=== PATIENT | female | born 1995 | race Hispanic/Latino ===

== ENCOUNTER 2016-06-01 19:00 | Inpatient (IN) | payer OTHER ==
[~2016-06-01] VITALS: Ht 172.7 cm; Wt 92.1 kg
[~2016-06-01 19:00] MED LIST: no historical meds
[2016-06-01] MEDS ORDERED: Lactated Ringer's 1,000 ML IV ONE ×2 (21:15→22:55)
[2016-06-01] MEDS ORDERED: Lactated Ringer's 1,000 ML IV PRN (23:21)
[2016-06-01] MEDS ORDERED: Carboprost 250 mCg/mL Inj IM PRN (23:25)
[2016-06-01] MEDS ORDERED: Ondansetron 2 mg/mL 2 mL Inj IVPUSH PRN (23:25)
[2016-06-01] MEDS ORDERED: Hemorrhage Kit, Post Partum XX ONE (23:25)
[2016-06-01] MEDS ORDERED: Oxytocin 10 Unit/mL Inj IM PRN (23:25)
[2016-06-01] MEDS ORDERED: Oxytocin 30 Units/500 mL LR 30 UNITS in IV Premix 1 EACH IV PRN (23:25)
[2016-06-01] MEDS ORDERED: Sodium Chloride LOK Flush 10 mL Syringe IVFLUSH PRN (23:25)
[2016-06-01] MEDS ORDERED: Methylergonovine 0.2 mg/mL Inj IM PRN (23:25)
[2016-06-01] MEDS ORDERED: fentaNYL-PF 50 mCg/mL 2 mL Inj IVPUSH PRN (23:25)
[2016-06-01] MEDS ORDERED: Penicillin G K Inj 5,000,000 UNITS in Dextrose 5% Minibag Plus 100 ML IV ONE (23:25)
[2016-06-02 00:39] LABS: Mean Corpuscular Hemoglobin 28.3 pg (27.0-35.0); Mean Corpuscular Volume 84.2 fL (81-100)
[2016-06-02] MEDS ORDERED: Carboprost 250 mCg/mL Inj IM PRN (02:45)
[2016-06-02] MEDS ORDERED: oxyCODONE-Acetamin 5-325 mg Tablet PO PRN (02:45)
[2016-06-02] MEDS ORDERED: Oxytocin 10 Unit/mL Inj IM PRN (02:45)
[2016-06-02] MEDS ORDERED: LANOlin HPA 7 Gm Ointment TOPICAL PRN (02:45)
[2016-06-02] MEDS ORDERED: Hemorrhage Kit, Post Partum XX ONE (02:45)
[2016-06-02] MEDS ORDERED: Methylergonovine 0.2 mg/mL Inj IM PRN (02:45)
[2016-06-02] MEDS ORDERED: Benzocaine (Dermoplast) 20% 60 Gm Spray TOPICAL PRN (02:45)
[2016-06-02] MEDS: Witch Hazel-Glycerin Pads TOPICAL PRN ×2 (03:23→14:49)
[2016-06-02] MEDS ORDERED: Penicillin G K Inj 3,000,000 UNITS in IV Premix 1 EACH IV SCH (04:30)
[2016-06-02] MEDS: Lactated Ringer's 1,000 ML IV SCH ×2 (07:00→09:23)
[2016-06-02] MEDS: Oxytocin 30 Units/500 mL LR 30 UNITS in IV Premix 1 EACH IV PRN ×2 (07:22→09:24)
[2016-06-02 10:20] LABS: BASOPHILS % (AUTO) 0.1 % (0-3); EOSINOPHILS % (AUTO) 0.2 % (0-5); MONOCYTES % (AUTO) 9.7 % (4-12); Mean Corpuscular Hemoglobin 28.2 pg (27.0-35.0); Mean Corpuscular Volume 84.4 fL (81-100); NEUTROPHILS % (AUTO) 80.3 % (40-74); Platelet Count 210 bil/L (150-400)
--- NOTE | 2016-06-02 10:52 | NUR ---
note Set up double electric breast pump with instructions for use and cleaning. MAKEDA does not have her own personal breast pump and we talked about how to initiate her getting her pump. I encouraged her to call her insurance company
[2016-06-02] MEDS: Ascorbic Acid 500 mg Tablet PO SCH ×2 (11:07→19:06)
--- NOTE | 2016-06-02 13:06 | HP ---
[address] [address] HISTORY AND PHYSICAL PATIENT: MIHCAEL GUERRIER : 1995 MR#: [id number] ADMIT: 06/01/2016 JOB ID: [id number] DATE OF ADMISSION: 06/01/2016 HISTORY OF PRESENT ILLNESS: The patient is a 20-year-old 1, para 0, at 35 weeks and 3 days. Comes to Labor and Delivery because of contractions that started in the afternoon of June 01, 2016. She presented with contractions every 5 minutes, she was examined. The cervix was 3 cm dilated, 80% effaced, -2 station. Two hours later, she progressed to 4.5 cm, 90%, station -1. heart rate tracing is reactive, category one. care was complicated by a history of E. coli UTI. The patient was on suppression with Macrobid since this happened twice. Group B strep culture is unknown. She is blood group and type O-positive, rubella immune. PAST MEDICAL HISTORY: As mentioned above. ALLERGIES: NKDA. SOCIAL HISTORY: The patient denies smoking, alcohol, or illicit recreational drug use. FAMILY HISTORY: Noncontributory. PHYSICAL EXAMINATION: Vital signs: Blood pressure 110/68, pulse 80, respiratory rate 18, temperature 36.7. HEENT: PERRLA. Lungs: Clear bilaterally. No adventitious sounds. Cardiovascular system: Regular rate and rhythm. Abdomen is gravid, nontender, nondistended, fundal height is larger than estimated for gestational age. Extremities: No pitting edema, vaginal examination dilation 4 cm. Effacement 90%, station -1. ASSESSMENT AND PLAN: The patient is a 20-year-old 1, para 0, at 35 weeks and 3 days with labor being admitted for delivery. GBS protocol was started and the status was unknown, cultures were sent. The labs were sent. IV hydration started. The patient declined an epidural. Pain management will be provided with fentanyl. Will anticipate spontaneous vaginal delivery. Hog Cutter and respiratory therapist were notified about delivery.
--- NOTE | 2016-06-02 13:13 | OP ---
[address] [address] OPERATIVE REPORT PATIENT: MICHAEL GUERRIER : 1995 MR#: [id number] ADMIT: 06/01/2016 JOB ID: [id number] DATE OF SURGERY: 06/02/2016 SURGEON: Maximo Gallegos MD PREOPERATIVE DIAGNOSIS(ES): POSTOPERATIVE DIAGNOSIS(ES): DELIVERY SUMMARY: The patient is a 20-year-old 1, para 1 now who came to Labor and Delivery at 7 a.m. of June 01, 2016 complaining of contractions that started in the afternoon of the same day. She was 35 weeks and 3 days . The patient showed contractions every 5 minutes on the monitor. She was examined. The cervix was 3 cm dilated, 80% effaced, station -2. She was kept for observation. In a couple of hours, she progressed to 4.5 cm, 90% effacement, station -1 and she was admitted for delivery. Admission time 11:15 p.m. GBS culture was initially unknown and GBS protocol was started. Later the result came back positive for group B streptococcus. The patient had a spontaneous rupture of membranes around midnight, progressed to full dilation at 2:15 a.m., started pushing at around the same time. She underwent spontaneous vaginal delivery at 2:35 a.m., delivered male with Apgars 5 at one minute and 8 at five minutes, weight 2937 g. The delayed cord clamping was done and the was transferred to awaiting hotel associate. Cord blood was sent. The patient has not had any lacerations. Placenta was delivered three minutes later and was found to be intact with a three-vessel cord. It was sent to Pathology. Estimated blood loss was 300 mL, because of the uterus being boggy, the patient received 0.2 mg of Methergine IM and 800 mcg of Cytotec rectally for better hemostasis.
[2016-06-03 06:46] LABS: Mean Corpuscular Hemoglobin 28.1 pg (27.0-35.0); Mean Corpuscular Volume 87.4 fL (81-100)
[2016-06-03] MEDS: Ascorbic Acid 500 mg Tablet PO SCH (07:40)
[2016-06-03 10:41] VITALS: BP 119/62; PULSE 101; RESP 17
--- NOTE | 2016-06-03 10:41 | PCM.DIMED ---
Discharge Instructions Date of Service Jun 03, 2016 Dates of Hospitalization Jun 01, 2016 at 23:15 Diet No restrictions Activity No restrictions Call your provider Fever or Chills, Shortness of breath, Bleeding, Chest pain, Vomitting, Excessive diarrhea, Weakness (unilateral) Patient Instructions Follow-up with PCP in: 6 weeks Maximo Gallegos MD Jun 03, 2016 10:41
[2016-06-03] MEDS ORDERED: DOCU-41 PO (10:43)
[2016-06-03] MEDS ORDERED: IBUP800T28 PO (10:43)
[2016-06-03] MEDS ORDERED: FERR-74 PO (10:43)
[2016-06-03] MEDS ORDERED: Methylergonovine 0.2 mg/mL Inj IM ONE (11:06)
--- NOTE | 2016-06-03 19:22 | DIS ---
[address] [address] DISCHARGE SUMMARY PATIENT: MICHAEL GUERRIER : 1995 MR#: [id number] ADMIT: 06/01/2016 JOB ID: [id number] DIS: 06/03/2016 ADMITTING DIAGNOSIS: A 20-year-old, 1, para 0, at 35 weeks and 3 days labor. DISCHARGE DIAGNOSIS: A 20-year-old, 1, para 0, at 35 weeks and 3 days labor status post spontaneous vaginal delivery. The patient is a 20-year-old, 1, para 1 now who came to Labor and Delivery at 7 p.m. June 01, 2016 complaining of contractions that started in the afternoon. The patient was progressing in labor, the cervix has changed from 3-4.5 cm in a couple of hours and she was admitted for delivery. The patient had GBS prophylaxis for unknown GBS status, later on cultures for group B streptococcus came back positive. She underwent a spontaneous vaginal delivery at 2:35 a.m. June 02, 2016. The delivery was uncomplicated, delivered male with Apgars 5 at one minute and 8 at five minutes, weight 2337 g. The patient has not had any lacerations, estimated blood loss was 300 mL. On day one, June 03, 2016, she was stable, asymptomatic, there was no vaginal bleeding. The fundus was firm. The patient's cramps were controlled with Motrin. She had stable hematocrit post delivery. She was sent home on day one, June 03, 2016 in stable condition with all discharge criteria met. She was given discharge medications includin. Ferrous sulfate 325 mg p.o. daily. 2. Colace 100 mg p.o. b.i.d. 3. Motrin 800 mg p.o. t.i.d. p.r.n. Follow-up visit in the clinic is scheduled in six weeks.
--- NOTE | 2016-06-06 16:35 | PATH ---
SURGICAL PATHOLOGY Attending Physician:Maximo Gallegos MD CASE STATUS: Signed Out PATIENT NAME: MICHAEL GUERRIER PID: [id number] : 1995 DATE COLLECTED:06/02/2015 00:00 SPECIMEN: Placenta CLINICAL HISTORY: A: PLACENTA IUP 35 WEEKS, PTL FINAL DIAGNOSIS: 1.LEO PLACENTA (458 GRAMS) WITH ACUTE CHORIOAMNIONITIS. ICD10 CODE O41.1 GROSS DESCRIPTION: The specimen is received in formalin, labeled with the patient's name and consists of an intact placenta and includes placental disc (458 g, 16.5 x 15.5 x 2.9 cm), portion of umbilical cord (length-3.6 cm, diameter-1.5 x 1.2). The membranes are ruptured 7.1 cm from the free edge of the placenta and are semi-translucent. The umbilical cord is attached 4.8 cm from the edge of the placenta and contains 3 vessels. The surface is smooth and shiny with no evidence of meconium. The maternal surface is dark maroon with normal cotyledon formation. The placental disc is spongy with no hematomas, infarcts, nodules, masses, or lesions. Section code: (A) edge of placenta with membranes, umbilical cord; (B-D) placenta, 3 full thickness sections. 06/05/16 JM MICRO DESCRIPTION: See diagnosis. ICD-9 CODES: CPT CODES: 1: 51600 Electronically Signed Out Krystyna Grady MD [facility] Pathology [facility] [address], [place] [address] Technical component performed at [facility], [facility] [address], [place], [address]
== END 2016-06-03 11:07 | disposition home or self-care (01) | DRG 560 ==
LOC: FBCO 19:00 → FBC 23:15
PROVIDERS: ADMIT Legal Medicine; ATTEND Legal Medicine
PROC: 10E0XZZ Delivery of Products of Conception, External Approach (ICD-10-PCS; principal; 2016-06-02)
DX: O60.14X0 Preterm labor third trimester with preterm delivery third trimester, not applicable or unspecified (principal); O99.824 Streptococcus B carrier state complicating childbirth; Z3A.35 35 weeks gestation of pregnancy; Z87.440 Personal history of urinary (tract) infections; Z37.0 Single live birth